=== PATIENT | male | born 2000 | race Caucasian/White ===

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

== ENCOUNTER 2018-07-16 13:34 | Emergency (ER) | payer OTHER ==
[2018-07-16 14:21] VITALS: BP 124/64
--- NOTE | 2018-07-16 14:30 | UC ---
General HPI - HPI Summary HPI Summary: Patient is here for suture removal from his right eye. He states that they were placed in [place] 6 days ago after he got a injury during a rugby game. He denies any associated headache blurry vision double vision neck pain dizziness and has no other complaints. - History of Current Complaint Chief Complaint: UCGeneralIllness Stated Complaint: STITCH REMOVAL/NOT DONE HERE Time Seen by Provider: 07/16/18 14:20 Hx Obtained From: Patient Pain Intensity: 0 Associated Signs & Symptoms: Negative: Dizziness, Fever, Headache, Nausea - Allergy/Home Medications Allergies/Adverse Reactions: Allergies Allergy/AdvReac Type Severity Reaction Status Date / Time No Known Allergies Allergy Verified 07/16/18 14:17 PMH/Surg Hx/FS Hx/Imm Hx Previously Healthy: Yes - Surgical History Surgical History: None - Family History Known Family History: Positive: None Negative: Cardiac Disease, Hypertension - Social History Occupation: Student Lives: Dormitory/Roommates Alcohol Use: None Substance Use Type: None Smoking Status (MU): Never Smoked Tobacco - Immunization History Hx Tetanus, Diphtheria Vaccination: Yes Vaccination Up to Date: Yes Review of Systems Constitutional: Negative Skin: Negative Eyes: Negative ENT: Negative Respiratory: Negative Cardiovascular: Negative Gastrointestinal: Negative Genitourinary: Negative Motor: Negative Neurovascular: Negative Musculoskeletal: Negative Neurological: Negative Psychological: Negative Is Patient Immunocompromised?: No All Other Systems Reviewed And Are Negative: Yes Physical Exam Triage Information Reviewed: Yes Appearance: Well-Appearing Vital Signs: Initial Vital Signs Temp 98.1 F 07/16/18 14:15 Pulse 89 07/16/18 14:15 Resp 16 07/16/18 14:15 BP 124/64 07/16/18 14:15 Pulse Ox 88 07/16/18 14:15 Vital Signs Reviewed: Yes Eyes: Positive: Other: - There is mild yellowing bruising to the right periorbital area. There are [address] just lateral to the right eye. There is no erythema or swelling. There is some scabbing forming over the stitches. Pupils are equal round reactive to light extraocular movements are intact with no associated double or blurry vision. There is no cranial or facial bone instability or tenderness. ENT: Positive: Pharynx normal, TMs normal. Negative: Nasal congestion, Nasal drainage Neck: Positive: Supple, Nontender, No Lymphadenopathy Respiratory: Positive: Lungs clear, Normal breath sounds Cardiovascular: Positive: RRR, No Murmur Abdomen Description: Positive: Nontender, No Organomegaly, Soft Bowel Sounds: Positive: Present Musculoskeletal: Positive: ROM Intact Neurological: Positive: Alert Psychological: Positive: Age Appropriate Behavior Skin Exam: Normal Course/Dx - Course Course Of Treatment: sutures removed, tolerated well. - Differential Dx - Multi-Symptom Provider Diagnoses: Sutures removed by R eye Discharge - Sign-Out/Discharge Documenting (check all that apply): Patient Departure All imaging exams completed and their final reports reviewed: No Studies - Discharge Plan Condition: Stable Disposition: HOME Patient Education Materials: Stitches Removal (ED) Referrals: [facility] [Outside] - If Needed - Billing Disposition and Condition Condition: STABLE Disposition: Home
== END 2018-07-16 14:37 | disposition home or self-care (01) ==
LOC: UCCORT 13:34
DX: S01.111D Laceration without foreign body of right eyelid and periocular area, subsequent encounter (principal)
CPT/HCPCS: 99211; G0463

== ENCOUNTER 2018-07-23 07:57 | Emergency (ER) | payer OTHER ==
[2018-07-23 08:09] VITALS: BP 145/80
--- NOTE | 2018-07-23 08:28 | UC ---
Throat Pain/Nasal Valente HPI - HPI Summary HPI Summary: Patient presents with 3 days progressive sore throat and painful swallowing. Patient is fevers or chills. Patient denies difficulty breathing. Patient reports mild sinus congestion. No ear pain. Patient has taken Chloraseptic spray. No Motrin or Tylenol. Patient has been eating and drinking but decreased because it hurts. No nausea vomiting. Patient denies any rashes. 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 Patient without abdominal pain. Patient is leaving town today to go home for break. Medications medications reviewed this visit. - History of Current Complaint Chief Complaint: UCGeneralIllness Stated Complaint: SORE THROAT CONGESTION Time Seen by Provider: 07/23/18 08:18 Pain Intensity: 8 - Allergies/Home Medications Allergies/Adverse Reactions: Allergies Allergy/AdvReac Type Severity Reaction Status Date / Time No Known Allergies Allergy Verified 07/16/18 14:17 PMH/Surg Hx/FS Hx/Imm Hx Previously Healthy: Yes - Surgical History Surgical History: None - Family History Known Family History: Positive: Other - Noncontributory Negative: Cardiac Disease, Hypertension - Social History Occupation: Student Lives: Dormitory/Roommates Alcohol Use: None Substance Use Type: None Smoking Status (MU): Never Smoked Tobacco - Immunization History Hx Tetanus, Diphtheria Vaccination: Yes Vaccination Up to Date: Yes Review of Systems Constitutional: Negative Skin: Negative ENT: Sore Throat All Other Systems Reviewed And Are Negative: Yes Physical Exam - Summary Physical Exam Summary: Vital Signs Reviewed: Yes A+Ox3, no distress, speaking full, easy sentences Eyes: Conjunctiva Clear, CORINA. EOM intact and full ENT: Hearing grossly normal TM x 2 clear, turbinates inflammed and boggy, + b/ l tonsilar enlargment, slight assymetry with right > L, uvula midline, mikd exudate + erythema, swallowing secretions without difficulty Neck: Positive: Supple + submandibular LA R>L Respiratory: Positive: No respiratory distress, No accessory muscle use + CTA throughout no w/r Cardiovascular: RRR nl s1, s2 no m/r CBT <2 sec abd soft + BS nt/nd no guarding, no distension Musculoskeletal Exam: TOLLIVER x 4 without difficulty Strength Intact, ROM Intact Neurological: Positive: Alert, + sensation throughout Psychological: Positive: Normal Response To Family Skin: Positive: no rash, no ecchymosis, warm Triage Information Reviewed: Yes Vital Signs: Initial Vital Signs Temp 99.1 F 07/23/18 08:06 Pulse 101 07/23/18 08:06 Resp 16 07/23/18 08:06 BP 145/80 07/23/18 08:06 Pulse Ox 98 07/23/18 08:06 Throat Pain/Nasal Course/Dx - Course Course Of Treatment: Patient with to 3 days progressive sore throat. Rapid strep negative. On exam, patient with turbinates inflamed and diffuse erythema of his posterior oropharynx. Patient with enlarged tonsils and slight scant exudate. Patient's right tonsil noted be slightly larger than the left. Uvula midline. No fluctuance. Given the asymmetry patient traveling home we'll start patient on antibiotics as well as steroids. Swish and spit salt water. Motrin Tylenol. Discussed with patient strict return precautions. Patient states understanding agreement with plan. Patient's handling secretions, not posturing, and no difficulty with speech. Patient in agreement. Patient declined offer of speak to parents. Pt's bp mildly elevated -recommend PCP or student health recheck - Differential Dx/Diagnosis Provider Diagnoses: pharyngitis. peritonsillar abscess Discharge - Sign-Out/Discharge Documenting (check all that apply): Patient Departure All imaging exams completed and their final reports reviewed: No Studies - Discharge Plan Condition: Stable Disposition: HOME Prescriptions: Amoxicillin/Clavulanate TAB* [Augmentin TAB 875*] 875 mg PO BID #19 tab predniSONE TAB* [Deltasone TAB*] 50 mg PO DAILY #4 tab Patient Education Materials: Pharyngitis (ED), Peritonsillar Abscess (ED) Referrals: No Primary Care Phys,NOPCP [Primary Care Provider] - Additional Instructions: - - Okay to alternate ibuprofen (Advil, Motrin)600mg and Tylenol 650mg every 3 hours for pain. Take with food. Do NOT take for more than 4-5 days - Okay to gargle and spit every 4 hours as needed for pain - Stay well hydrated - frequent sips of cold fluids will be soothing to your throat (popsicles, jello, ice cream, ice water). Avoid excess caffeine until your symptoms have resolved. - As discussed with your doctor today, your right tonsil is a little more swollen and parker than your left. You are being given antibiotics in case there is a start of an infection behind this tonsil. If you develop difficulty breathing, drooling, or any other concern it is recommended you go directly to the emergency department -Throat infections are spread by oral secretions - do not share eating or drinking utensils until you symptoms are resolved. Clean items that may get your secretions such as cell phones, ipads, computer mouse, television remotes. Ater you have been on antibiotics for 2 days, change your toothbrush and your pillowcase. - Take prednisone and antibiotics as prescribed until gone. - Contact your doctor to arrange a follow-up appointment as needed - Billing Disposition and Condition Condition: STABLE Disposition: Home
[2018-07-23] MEDS ORDERED: Amoxicillin/Clavulanate TAB* 875 MG PO ONE (08:38)
[2018-07-23] MEDS ORDERED: predniSONE TAB* 20 MG PO ONE (08:38)
[2018-07-23] MEDS ORDERED: Acetaminophen TAB* 325 MG PO ONE (08:38)
== END 2018-07-23 08:50 | disposition home or self-care (01) ==
LOC: UCCORT 07:57
DX: J02.9 Acute pharyngitis, unspecified (principal); J36 Peritonsillar abscess
CPT/HCPCS: 87651; 99212; A9270-GY; G0463; J7512